=== PATIENT | female | born 1985 | race Caucasian/White ===

== ENCOUNTER 2022-09-13 13:56 | Outpatient (CLI) | payer OTHER | END 2022-09-13 13:57 | disposition home or self-care (01) | LOC: NAV CT 13:56 | PROVIDERS: ATTEND Family Medicine | DX: R10.13 Epigastric pain (principal) | CPT/HCPCS: 74176 ==

== ENCOUNTER 2025-01-04 08:39 | Emergency (ER) | payer BC ==
[2025-01-04 09:42] LABS: #Basophils 0.1 thou/uL (0.0-0.2); #Eosinophils 0.0 thou/uL (0.0-0.7); #Lymphocytes 2.3 thou/uL (1.20-3.40); #Monocytes 0.8 thou/uL (0.11-0.59); #Neutrophils 10.5 thou/uL (1.40-6.50); %Basophils 1.0 % (0.0-1.0); %Eosinophils 0.2 % (0.0-10.0); %Lymphocytes 16.5 % (21.0-51.0); %Monocytes 6.1 % (0.0-10.0); %Neutrophils 76.2 % (42.0-75.0); Hematocrit 38.9 % (36.0-47.0); Hemoglobin 13.2 g/dL (12.0-16.0); Mean Corpuscular Hemoglobin 28.1 pg (27.0-31.0); Mean Corpuscular Volume 82.7 fl (78.0-98.0); Platelet Count 306 10x3/uL (130-400); Red Blood Cell (RBC) Count 4.70 mill/uL (4.20-5.40); White Blood Cell (WBC) Count 13.8 10x3/uL (4.8-10.8)
[2025-01-04] MEDS ORDERED: Pantoprazole 40 MG VIAL ONE (09:46)
[2025-01-04 09:59] LABS: ALT (SGPT) 18 U/L (Less than 34); AST (SGOT) 23 U/L (11-34); Albumin 4.4 g/dL (3.1-4.5); Alkaline Phosphatase 52 U/L (40-110); Anion Gap 15 mmol/L (10-20); BUN (Urea Nitrogen) 22 mg/dL (7.0-18.7); Bilirubin, Total 0.7 mg/dL (0.3-1.2); Calc. Creatinine Clearance 0 mL/min (70-130); Calcium 9.1 mg/dL (7.8-10.44); Carbon Dioxide 21 mmol/L (22-29); Chloride 104 mmol/L (98-107); Globulin 2.5 g/dL (2.4-3.5); Glucose 101 mg/dL (70-105); Lipase 11 U/L (8-78); Potassium 3.8 mmol/L (3.5-5.1); Sodium 136 mmol/L (136-145)
[2025-01-04] MEDS ORDERED: Ondansetron PF 4 MG/2 ML Vial ONE (10:43)
[2025-01-04 11:40] LABS: Cocaine Metabolite Screen Negative (Negative); THC/Cannabinoid Screen PRELIM POSITIVE (Negative); Tricyclic Screen Negative (Negative)
[2025-01-04 11:47] LABS: Glucose, Urine (Dipstick) Negative (Negative); Leukocyte Negative (Negative); Protein, Urine (Dipstick) Negative (Neg-Trace); RBC/HPF 0-3 HPF (0-3); Specific Gravity, Urine 1.010 (1.005-1.030)
== END 2025-01-04 15:02 | disposition home or self-care (01) ==
LOC: NAV ERS 08:39
DX: K52.9 Noninfective gastroenteritis and colitis, unspecified (principal); E86.0 Dehydration
CPT/HCPCS: 74177; 80053; 80306; 81001; 83690; 85025; 96361; 96374; 96375; J1630; J2405; J2470; J2550; J7120